=== PATIENT | male | born 1950 | race American Indian/Alaskan Native ===

== ENCOUNTER 2016-09-28 13:58 | Emergency (ER) | payer MEDICARE ==
[2016-09-28 15:24] LABS: Mean Corpuscular HGB Conc 31 % (32-34); Mean Corpuscular Volume 72 fl (84-94); Platelet Count 182 K/mm3 (140-440); Red Blood Count 6.59 M/mm3 (3.65-5.03); Red Cell Distribution Width 16.8 % (13.2-15.2); White Blood Count 9.5 K/mm3 (4.5-11.0)
[2016-09-28 15:38] LABS: BUN/Creatinine Ratio 10.76; Calcium 8.7 mg/dL (8.4-10.2)
[2016-09-28 15:42] LABS: Bacteria,Urine 1+ /HPF (Negative); Bilirubin,Urine NEG (Negative); Blood,Urine NEG (Negative); Ketones,Urine NEG (Negative); Leukocyte Esterase,Urine NEG (Negative); Mucus,Urine FEW /HPF; Nitrite,Urine NEG (Negative); Urobilinogen,Urine < 2.0 mg/dL (<2.0); WBC,Urine < 1.0 /HPF (0.0-6.0)
[2016-09-28 15:54] LABS: Hematocrit 47.6 % (35.5-45.6); Hemoglobin 14.7 gm/dl (11.8-15.2); Mean Corpuscular Hemoglobin 22 pg (28-32)
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
[2016-09-28 21:08] LABS: INR 1.07 (0.87-1.13)
[2016-09-28 21:09] LABS: Partial Thromboplastin Time 30.6 Sec. (24.2-36.6)
[2016-09-28 21:23] LABS: Alanine Aminotransferase 27 units/L (7-56); Albumin 3.6 g/dL (3.9-5); Albumin/Globulin Ratio 1.1 %; Alkaline Phosphatase 66 units/L (35-129); Lipase 20 units/L (13-60); Total Protein 6.8 g/dL (6.3-8.2)
[2016-09-28 21:36] LABS: Bilirubin,Direct < 0.2 mg/dL (0-0.2); Bilirubin,Indirect 0.4 mg/dL
[2016-09-28] MEDS ORDERED: KEPPRA 1,000 MG in D5W 100 ML IV ONE (21:39)
[2016-09-28] MEDS ORDERED: KEPPRA 1,000 MG/NS 0.75% 100ML 1,000 MG/100 ML BAG IV ONE (22:00)
[2016-09-29 01:24] VITALS: BP 104/63
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
== END 2016-09-29 01:48 | disposition short-term general hospital (02) ==
LOC: ED 13:58
DX: S22.41XA Multiple fractures of ribs, right side, initial encounter for closed fracture (principal); S20.211A Contusion of right front wall of thorax, initial encounter; V47.5XXA Car driver injured in collision with fixed or stationary object in traffic accident, initial encounter; W22.12XA Striking against or struck by front passenger side automobile airbag, initial encounter; Y93.89 Activity, other specified; Y99.8 Other external cause status; Y92.488 Other paved roadways as the place of occurrence of the external cause; R56.9 Unspecified convulsions
CPT/HCPCS: 36415; 70450; 71020; 71250; 80048; 80074; 80164; 81001; 82962; 83690; 84484; 85027; 85610; 85730; 93005; 93010; 96365; 99285; J1953